=== PATIENT | male | born 1980 | race Two or more races ===

== ENCOUNTER 2018-05-31 16:15 | Emergency (ER) | payer SELFPAY ==
[~2018-05-31] VITALS: Ht 175.3 cm; Wt 81.6 kg
[2018-05-31 16:19] VITALS: BP 150/97
[2018-05-31] MEDS ORDERED: Ketorolac 30mg Inj IM ONE (16:30)
[2018-05-31] MEDS ORDERED: Methocarbamol 500mg tab ORAL ONE (16:30)
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
--- NOTE | 2018-05-31 17:58 | Diagnostic Imaging Report ---
EXAM: CT Chest Without Intravenous Contrast CLINICAL HISTORY: PAIN TECHNIQUE: Axial computed tomography images of the chest without intravenous contrast. CTDI is 18 mGy and DLP is 785 mGy-cm. One or more of the following dose reduction techniques were used: automated exposure control, adjustment of the mA and/or kV according to patient size, use of iterative reconstruction technique. COMPARISON: No relevant prior studies available. FINDINGS: Lungs: Unremarkable. No mass. No consolidation. Pleural space: Unremarkable. No pneumothorax. No significant effusion. Heart: Unremarkable. No cardiomegaly. No significant pericardial effusion. Mediastinum: Left posterior mediastinal fluid approximately 2 x 1 cm, likely chronic or incidental cyst. Bones/joints: No acute fracture. Soft tissues: Unremarkable. Vasculature: Unremarkable. Lymph nodes: Unremarkable. No enlarged lymph nodes. IMPRESSION: No acute fracture.
--- NOTE | 2018-05-31 17:58 | Diagnostic Imaging Report ---
EXAM: XR Left Wrist Complete, 3 or More Views CLINICAL HISTORY: PAIN TECHNIQUE: Frontal, lateral and oblique views of the left wrist. COMPARISON: No relevant prior studies available. FINDINGS: Bones/joints: No acute displaced fracture or dislocation. Soft tissues: Unremarkable. No radiopaque foreign body. IMPRESSION: No acute displaced fracture or dislocation.
--- NOTE | 2018-05-31 17:58 | Diagnostic Imaging Report ---
EXAM: XR Right Wrist Complete, 3 or More Views CLINICAL HISTORY: PAIN TECHNIQUE: Frontal, lateral and oblique views of the right wrist. COMPARISON: No relevant prior studies available. FINDINGS: Bones/joints: No acute displaced fracture or dislocation. Soft tissues: Unremarkable. No radiopaque foreign body. IMPRESSION: No acute displaced fracture or dislocation.
[2018-05-31] MEDS ORDERED: LIDOCAINE700 M1 TP (18:05)
[2018-05-31] MEDS ORDERED: ROBAXIN500 MG PO (18:05)
[2018-05-31] MEDS ORDERED: TYLENOL EXTRA500 MG ORAL (18:05)
--- NOTE | 2018-05-31 18:13 | Diagnostic Imaging Report ---
EXAM: XR Right Hand Complete, 3 or More Views CLINICAL HISTORY: PAIN TECHNIQUE: Frontal, lateral and oblique views of the right hand. COMPARISON: No relevant prior studies available. FINDINGS: Bones/joints: No acute displaced fracture or dislocation. Soft tissues: Unremarkable. No radiopaque foreign body. IMPRESSION: No acute displaced fracture or dislocation.
[2018-05-31 18:24] VITALS: BP 125/83
[2018-05-31 18:25] VITALS: BP 125/83
== END 2018-05-31 18:25 | disposition home or self-care (01) ==
LOC: EDBD 16:15 → EMR 16:30
DX: S20.212A Contusion of left front wall of thorax, initial encounter (principal); S60.00XA Contusion of unspecified finger without damage to nail, initial encounter; S63.502A Unspecified sprain of left wrist, initial encounter; S63.501A Unspecified sprain of right wrist, initial encounter; V43.52XA Car driver injured in collision with other type car in traffic accident, initial encounter; Y92.410 Unspecified street and highway as the place of occurrence of the external cause; E11.9 Type 2 diabetes mellitus without complications; I10 Essential (primary) hypertension
CPT/HCPCS: 71250; 73110; 73130; 96372; 99284; J1885